=== PATIENT | male | born 1985 | race African-American/Black ===

== ENCOUNTER 2021-08-14 19:07 | Emergency (ER) | payer SELFPAY ==
[2021-08-14] MEDS ORDERED: Lidocaine 1% PF 5 ML VIAL ONE (19:50)
[2021-08-14] MEDS ORDERED: Bacitracin 1 PK ONE (20:23)
[2021-08-14] MEDS ORDERED: HYDROcodone/Acetaminophen 5/325 mg Tablet ONE (20:23)
[2021-08-14] MEDS ORDERED: Sulfameth/Trimethoprim DS 800-160mg TAB ONE (20:23)
== END 2021-08-14 20:33 | disposition home or self-care (01) ==
LOC: ERS 19:07
DX: L02.512 Cutaneous abscess of left hand (principal); F17.210 Nicotine dependence, cigarettes, uncomplicated
CPT/HCPCS: 26010